=== PATIENT | male | born 1955 | race Caucasian/White ===

== ENCOUNTER 2024-10-04 21:45 | Emergency (ER) | payer MEDICARE, OTHER ==
[~2024-10-04] VITALS: Ht 172.7 cm; Wt 51.3 kg
[2024-10-04 22:00] VITALS: BP 98/71; PULSE 92; RESP 18; TEMP 98.1; O2SAT 94
== END 2024-10-04 22:30 | disposition home or self-care (01) ==
LOC: ER 21:46
DX: Z00.00 Encounter for general adult medical examination without abnormal findings (principal); T69.9XXA Effect of reduced temperature, unspecified, initial encounter; F17.200 Nicotine dependence, unspecified, uncomplicated; X31.XXXA Exposure to excessive natural cold, initial encounter; Y93.89 Activity, other specified; Y92.89 Other specified places as the place of occurrence of the external cause; Y99.8 Other external cause status
CPT/HCPCS: 99283

== ENCOUNTER 2024-10-09 20:10 | Emergency (ER) | payer OTHER ==
[~2024-10-09] VITALS: Ht 172.7 cm; Wt 50.0 kg
[2024-10-09] MEDS ORDERED: DICL20GE TOP (22:03)
[2024-10-09] MEDS: DICLOFENAC SODIUM 1% gel 1 50GM tube TP ONE (22:34)
[2024-10-09 22:40] VITALS: BP 121/80; PULSE 91; RESP 14; TEMP 97.9; O2SAT 92
[2024-10-10] MEDS ORDERED: ALBU8HFA INH (02:46)
[2024-10-10] MEDS ORDERED: PRED20TA PO (02:46)
[2024-10-10] MEDS ORDERED: AZIT250T3 PO (02:46)
[2024-10-10] MEDS ORDERED: INHA1SPA3 INH (02:46)
== END 2024-10-09 23:17 | disposition home or self-care (01) ==
LOC: ER 20:11
DX: M19.041 Primary osteoarthritis, right hand (principal); M19.042 Primary osteoarthritis, left hand; T68.XXXA Hypothermia, initial encounter; X58.XXXA Exposure to other specified factors, initial encounter; Y93.89 Activity, other specified; Y92.89 Other specified places as the place of occurrence of the external cause; Y99.8 Other external cause status
CPT/HCPCS: 99283

== ENCOUNTER 2024-10-09 23:03 | Emergency (ER) | payer OTHER ==
[~2024-10-09] VITALS: Ht 172.7 cm; Wt 50.0 kg
[~2024-10-09 23:03] MED LIST: DICL20GE TOP
[2024-10-10 01:10] VITALS: BP 114/74
[2024-10-10 02:44] VITALS: PULSE 77; RESP 20; O2SAT 92
[2024-10-10] MEDS: ipratropium/albuterol 3ml nebule NEB ONE (02:44)
[2024-10-10] MEDS ORDERED: AZIT250T3 PO (02:46)
[2024-10-10] MEDS ORDERED: PRED20TA PO (02:46)
[2024-10-10] MEDS ORDERED: INHA1SPA3 INH (02:46)
[2024-10-10] MEDS ORDERED: ALBU8HFA INH (02:46)
[2024-10-10] MEDS: predniSONE 20 mg tablet PO ONE (02:54)
[2024-10-10] MEDS: azithromycin 250mg tablet PO ONE (02:54)
[2024-10-10 02:55] VITALS: PULSE 79; RESP 2; O2SAT 95
[2024-10-10 02:59] VITALS: TEMP 98
== END 2024-10-10 03:11 | disposition home or self-care (01) ==
LOC: ER 23:03
DX: J40 Bronchitis, not specified as acute or chronic (principal); J44.1 Chronic obstructive pulmonary disease with (acute) exacerbation; F17.210 Nicotine dependence, cigarettes, uncomplicated; Z79.899 Other long term (current) drug therapy; Z59.00 Homelessness unspecified
CPT/HCPCS: 71045; 94640; 99283; J7512; 94760

== ENCOUNTER 2024-10-22 07:52 | Emergency (ER) | payer MEDICARE, OTHER ==
[~2024-10-22] VITALS: Ht 172.7 cm; Wt 59.1 kg
[~2024-10-22 07:52] MED LIST changes: +ALBU8HFA INH; +INHA1SPA3 INH
[2024-10-22 07:54] VITALS: BP 120/70; PULSE 107; RESP 17; O2SAT 97
[2024-10-22 09:51] VITALS: TEMP 97.4
== END 2024-10-22 09:54 | disposition home or self-care (01) ==
LOC: ER 07:53
DX: J00 Acute nasopharyngitis [common cold] (principal); T69.9XXA Effect of reduced temperature, unspecified, initial encounter; Z79.1 Long term (current) use of non-steroidal anti-inflammatories (NSAID); Z79.899 Other long term (current) drug therapy; Z59.00 Homelessness unspecified; X31.XXXA Exposure to excessive natural cold, initial encounter
CPT/HCPCS: 99283